=== PATIENT | female | born 1990 | race Caucasian/White ===

== ENCOUNTER 2017-05-10 18:29 | Emergency (ER) | payer BC ==
[~2017-05-10] VITALS: Ht 160 cm; Wt 64.0 kg
[~2017-05-10 18:29] MED LIST: IBUP600T22 PO; IUD
--- NOTE | 2017-05-10 18:34 | ER Report ---
History and Physical Time Seen By MD: 18:34 HPI/ROS CHIEF COMPLAINT: Lower abdominal pain HISTORY OF PRESENT ILLNESS: 27-year-old female presents a ambulatory to the ER complaining of severe right lower quadrant abdominal pain. She was sitting down when she felt a sudden sharp pain in her right lower abdomen. The pain was so intense she was unable to get up off the floor without assistance. She notes no nausea no vomiting, no diarrhea. She notes no dysuria, frequency or hematuria. She denies fever or chills. She describes 9/10 pain in her right lower abdomen. Patient has an IUD in place. She denies any pain with intercourse. She is concerned it may have slipped out. Her significant other notes that he can feel something during intercourse. Patient reports a distant history of ovarian cysts. REVIEW OF SYSTEMS: Respiratory: No cough, no dyspnea. Cardiovascular: No chest pain, no palpitations. Gastrointestinal: As above Musculoskeletal: No back pain. Allergies: Coded Allergies: No Known Drug Allergies (Unverified , 05/10/17) Home Meds Active Scripts Ondansetron Hcl (ZOFRAN) 4 Mg Tablet, 4 MG PO Q4H Y for NAUSEA/VOMITING, #10 Prov:KWASI HELTON DO 05/10/17 Oxycodone Hcl/Acetaminophen (PERCOCET 5-325 MG TABLET) 1 Each Tablet, 1 EACH PO Q4-6H Y for PAIN, #12 Prov:KWASI HELTON DO 05/10/17 Reported Medications [paragaurd iud] No Conflict Check 05/10/17 Discontinued Reported Medications [Iud] No Conflict Check 11/04/16 Discontinued Scripts Ibuprofen (IBUPROFEN) 600 Mg Tablet, 1 TAB PO Q6H for PAIN, #20 TAB 0 Refills Prov:SAADIA NJ MD 11/04/16 Reviewed Nurses Notes: Yes Old Medical Records Reviewed: Yes Constitutional Vital Sign - Last 24 Hours 05/10/17 05/10/17 05/10/17 05/10/17 18:38 18:38 18:44 18:59 Temp 99.8 Pulse 95 89 81 Resp 16 B/P (MAP) 147/81 147/81 (103) Pulse Ox 96 95 95 O2 Delivery Room Air 05/10/17 05/10/17 05/10/17 05/10/17 19:14 19:29 19:44 19:59 Pulse ??? 86 65 79 Pulse Ox 97 91 96 96 Physical Exam General Appearance: The patient is alert, has no immediate need for airway protection and no current signs of toxicity. Signs stable, afebrile, pulse ox normal, moderate distress Eyes: Pupils equal and round no injection. Respiratory: Chest is non tender, lungs are clear to auscultation. Cardiac: regular rate and rhythm Gastrointestinal: Abdomen is soft, moderate right lower quadrant tenderness with guarding but no rebound no masses, bowel sounds normal. Pelvic exam: There is an IUD in place. There there are filaments extending from the cervix. There is some debris adhering to the filaments. There is some mucinous discharge coming from the cervix. Musculoskeletal: Neck: Neck is supple and non tender. No lymphadenopathy Extremities have full range of motion and are non tender. No edema, no calf tenderness Skin: No rashes or lesions. DIFFERENTIAL DIAGNOSIS: After history and physical exam differential diagnosis was considered for abdominal pain including but not limited to appendicitis, cholecystitis, gastritis and urinary tract infection. Additionally,abdominal pain in a female including but not limited to ovarian cyst, pelvic inflammatory disease, ovarian torsion, urinary tract infection, IUD displacement and appendicitis. Medical Decision Making Data Points Result Diagram: 05/10/17191905/10/171919 Laboratory Hematology Test 05/10/17 00:00 05/10/17 18:36 05/10/17 19:20 Chlamydia trachomatis Amplified DNA Negative (Negative) Neisseria gonorrhoeae Amplified DNA Negative (Negative) Body Source Urine Urine Color Yellow Urine Clarity Clear Urine pH 6.0 pH (4.8-9.5) Urine Specific [place] 1.026 Urine Protein Negative mg/dL (NEGATIVE) Urine Glucose (UA) Negative mg/dL (NEGATIVE) Urine Ketones Negative mg/dL (NEGATIVE) Urine Blood Negative (NEGATIVE) Urine Nitrite Positive (NEGATIVE) Urine Bilirubin Negative (NEGATIVE) Urine Urobilinogen 2.0 mg/dL (0.2-1.9) Urine Leukocyte Esterase Negative (NEGATIVE) Urine RBC <1 /HPF (0-2/HPF) Urine WBC 1 /HPF (0-5/HPF) Urine Squamous Epithelial Cells Many /LPF (</=FEW) Urine Bacteria Many /HPF (NONE-FEW) Urine Mucus Few /HPF (NONE-FEW) Urine HCG, Qualitative Negative (NEGATIVE) Red Blood Count 4.99 M/uL (4.17-5.56) Mean Corpuscular Volume 90.5 fL (80.0-96.0) Mean Corpuscular Hemoglobin 32.2 pg (26.0-33.0) Mean Corpuscular Hemoglobin Concent 35.6 g/dL (32.0-36.0) Red Cell Distribution Width 12.9 % (11.5-14.5) Mean Platelet Volume 8.9 fL (7.2-11.1) Neutrophils (%) (Auto) 58.8 % (39.4-72.5) Lymphocytes (%) (Auto) 29.3 % (17.6-49.6) Monocytes (%) (Auto) 8.1 % (4.1-12.4) Eosinophils (%) (Auto) 3.0 % (0.4-6.7) Basophils (%) (Auto) 0.8 % (0.3-1.4) Nucleated RBC Relative Count (auto) 0.0 /100WBC Neutrophils # (Auto) 4.9 K/uL (2.0-7.4) Lymphocytes # (Auto) 2.5 K/uL (1.3-3.6) Monocytes # (Auto) 0.7 K/uL (0.3-1.0) Eosinophils # (Auto) 0.3 K/uL (0.0-0.5) Basophils # (Auto) 0.1 K/uL (0.0-0.1) Nucleated RBC Absolute Count (auto) 0.00 K/uL Sodium Level 138 mmol/L (137-145) Potassium Level 3.8 mmol/L (3.5-5.0) Chloride Level 103 mmol/L (98-107) Carbon Dioxide Level 24 mmol/L (22-31) Blood Urea Nitrogen 14 mg/dl (7-18) Creatinine 0.80 mg/dl (0.52-1.04) Glomerular Filtration Rate Calc > 60.0 Random Glucose 87 mg/dl (75-110) Calcium Level 9.0 mg/dl (8.4-10.2) Total Bilirubin 0.4 mg/dl (0.2-1.3) Aspartate Amino Transf (AST/SGOT) 20 U/L (0-35) Alanine Aminotransferase (ALT/SGPT) 24 U/L (0-56) Alkaline Phosphatase 55 U/L (0-126) Total Protein 7.6 gm/dl (6.3-8.2) Albumin 4.1 g/dl (3.5-5.0) Amylase Level 90 U/L (0-110) Lipase 95 U/L (23-300) Chemistry Test 05/10/17 00:00 05/10/17 18:36 05/10/17 19:20 Chlamydia trachomatis Amplified DNA Negative (Negative) Neisseria gonorrhoeae Amplified DNA Negative (Negative) Body Source Urine Urine Color Yellow Urine Clarity Clear Urine pH 6.0 pH (4.8-9.5) Urine Specific [place] 1.026 Urine Protein Negative mg/dL (NEGATIVE) Urine Glucose (UA) Negative mg/dL (NEGATIVE) Urine Ketones Negative mg/dL (NEGATIVE) Urine Blood Negative (NEGATIVE) Urine Nitrite Positive (NEGATIVE) Urine Bilirubin Negative (NEGATIVE) Urine Urobilinogen 2.0 mg/dL (0.2-1.9) Urine Leukocyte Esterase Negative (NEGATIVE) Urine RBC <1 /HPF (0-2/HPF) Urine WBC 1 /HPF (0-5/HPF) Urine Squamous Epithelial Cells Many /LPF (</=FEW) Urine Bacteria Many /HPF (NONE-FEW) Urine Mucus Few /HPF (NONE-FEW) Urine HCG, Qualitative Negative (NEGATIVE) White Blood Count 8.4 k/uL (4.5-11.0) Red Blood Count 4.99 M/uL (4.17-5.56) Hemoglobin 16.1 g/dL (12.0-16.0) Hematocrit 45.2 % (34.0-47.0) Mean Corpuscular Volume 90.5 fL (80.0-96.0) Mean Corpuscular Hemoglobin 32.2 pg (26.0-33.0) Mean Corpuscular Hemoglobin Concent 35.6 g/dL (32.0-36.0) Red Cell Distribution Width 12.9 % (11.5-14.5) Platelet Count 229 K/uL (150-450) Mean Platelet Volume 8.9 fL (7.2-11.1) Neutrophils (%) (Auto) 58.8 % (39.4-72.5) Lymphocytes (%) (Auto) 29.3 % (17.6-49.6) Monocytes (%) (Auto) 8.1 % (4.1-12.4) Eosinophils (%) (Auto) 3.0 % (0.4-6.7) Basophils (%) (Auto) 0.8 % (0.3-1.4) Nucleated RBC Relative Count (auto) 0.0 /100WBC Neutrophils # (Auto) 4.9 K/uL (2.0-7.4) Lymphocytes # (Auto) 2.5 K/uL (1.3-3.6) Monocytes # (Auto) 0.7 K/uL (0.3-1.0) Eosinophils # (Auto) 0.3 K/uL (0.0-0.5) Basophils # (Auto) 0.1 K/uL (0.0-0.1) Nucleated RBC Absolute Count (auto) 0.00 K/uL Glomerular Filtration Rate Calc > 60.0 Calcium Level 9.0 mg/dl (8.4-10.2) Total Bilirubin 0.4 mg/dl (0.2-1.3) Aspartate Amino Transf (AST/SGOT) 20 U/L (0-35) Alanine Aminotransferase (ALT/SGPT) 24 U/L (0-56) Alkaline Phosphatase 55 U/L (0-126) Total Protein 7.6 gm/dl (6.3-8.2) Albumin 4.1 g/dl (3.5-5.0) Amylase Level 90 U/L (0-110) Lipase 95 U/L (23-300) Urinalysis Test 05/10/17 18:36 Urine Color Yellow Urine Clarity Clear Urine pH 6.0 pH (4.8-9.5) Urine Specific [place] 1.026 Urine Protein Negative mg/dL (NEGATIVE) Urine Glucose (UA) Negative mg/dL (NEGATIVE) Urine Ketones Negative mg/dL (NEGATIVE) Urine Blood Negative (NEGATIVE) Urine Nitrite Positive (NEGATIVE) Urine Bilirubin Negative (NEGATIVE) Urine Urobilinogen 2.0 mg/dL (0.2-1.9) Urine Leukocyte Esterase Negative (NEGATIVE) Urine RBC <1 /HPF (0-2/HPF) Urine WBC 1 /HPF (0-5/HPF) Urine Squamous Epithelial Cells Many /LPF (</=FEW) Urine Bacteria Many /HPF (NONE-FEW) Urine Mucus Few /HPF (NONE-FEW) Urine HCG, Qualitative Negative (NEGATIVE) ED Course/Re-evaluation Clinical Indication for ER IV: Hydration, IV Access ED Course Patient was admitted to an examination room. H&P was done. The differential diagnoses was considered. On clinical examination. Patient has significant right lower quadrant pain of sudden onset. I'm suspicious she ruptured ovarian cyst. Her symptoms are concerning for appendicitis. However, her pain is sudden onset nature. Her white blood cell count is normal. She has no rebound. On pelvic exam. Patient has debris adherent to her IUD filaments in her vaginal os. She is advised to follow-up with [facility] for evaluation and consideration of replacement of her IUD. Patient's discharged home with conservative treatment plan of ibuprofen, Percocet and Zofran for symptomatically management. She advised to apply heating pad to her lower abdomen. She is cautioned return to the ER for any worsening. Decision to Disposition Date: May 10, 2017 Decision to Disposition Time: 19:54 Depart Departure Latest Vital Signs Vital Signs Date Time Temp Pulse Resp B/P (MAP) Pulse Ox O2 Delivery O2 Flow Rate FiO2 05/10/17 19:59 79 96 05/10/17 18:38 147/81 (103) 05/10/17 18:38 99.8 16 Room Air Impression: Primary Impression: Abdominal pain Additional Impressions: Ruptured ovarian cyst History of ovarian cyst IUD (intrauterine device) in place Condition: Improved Disposition: HOME OR SELF-CARE Referrals: ELISABETH RAMIREZ MD [place] Ondansetron Hcl (ZOFRAN) 4 Mg Tablet 4 MG PO Q4H Y for NAUSEA/VOMITING, #10 Prov: KWASI HELTON DO 05/10/17 Oxycodone Hcl/Acetaminophen (PERCOCET 5-325 MG TABLET) 1 Each Tablet 1 EACH PO Q4-6H Y for PAIN, #12 Prov: KWASI HELTON DO 05/10/17 Patient Instructions: Ruptured Ovarian Cyst (ED) Additional Instructions: Take ibuprofen 200 mg 3 tablets 3 times a day with food Apply heating pad to your abdomen Follow-up with Dr. Ramirez if unimproved in 3-5 days Return to the ER for any worsening, especially high fever, worsening of pain Problem Qualifiers Primary Impression: Abdominal pain Abdominal location: lower abdomen, unspecified Qualified Codes: R10.30 - Lower abdominal pain, unspecified KWASI HELTON DO May 10, 2017 18:34
[2017-05-10 18:38] VITALS: BP 147/81
[2017-05-10] MEDS ORDERED: [UNRECOGNIZED DRUG - OTHER] (18:38)
[2017-05-10] MEDS ORDERED: NS(*) 0.9% 1000 ML BAG 1,000 ML IV ONE (18:59)
[2017-05-10] MEDS ORDERED: fentaNYL CITR 100 MCG/2 ML AMP IVP ONE (19:00)
[2017-05-10] MEDS ORDERED: ONDANSETRON 4 MG/2 ML VIAL IVP ONE (19:00)
[2017-05-10 19:28] LABS: PLATELET COUNT, AUTOMATED 229 K/uL (150-450)
[2017-05-10] MEDS ORDERED: OXYC-865 PO (19:57)
[2017-05-10] MEDS ORDERED: ONDA4TAB97 PO (19:57)
== END 2017-05-10 20:19 | disposition home or self-care (01) ==
LOC: ER 18:56
DX: N83.201 Unspecified ovarian cyst, right side (principal); Z97.5 Presence of (intrauterine) contraceptive device
CPT/HCPCS: 81001; 81025; 82150; 83690; 85025; 87491; 87591; 96374; 96375; 99284; J2405; J3010; J7030; 82040; 82247; 82310; 82374; 82435; 82565; 82947; 84075; 84132; 84155; 84295; 84450; 84460; 84520